=== PATIENT | female | born 1980 | race Caucasian/White ===

== ENCOUNTER 2025-05-26 15:43 | Emergency (ER) | payer OTHER ==
[~2025-05-26] VITALS: Ht 162.6 cm; Wt 70.3 kg
[2025-05-26] MEDS ORDERED: APIX5TAB4 PO (16:44)
[2025-05-26 17:45] LABS: PLATELET COUNT (AUTO) 291 K/uL (179-408); RED BLOOD CELL COUNT(AUTO) 4.83 MIL/uL (3.63-4.92); RED CELL DISTRIBUTION WIDTH 14.0 % (12.3-17.7); WHITE BLOOD COUNT (AUTO) 11.8 K/uL (3.8-11.8)
[2025-05-26 18:01] LABS: ASPARTATE AMINOTRANSFERASE 10 U/L (15-37); CREATININE 0.7 mg/dL (0.6-1.3); SODIUM SERUM 138 mmol/L (136-145); TOTAL PROTEIN, SERUM 7.4 g/dL (6.4-8.2); UREA NITROGEN, BLOOD 12 mg/dL (7-18)
[2025-05-26] MEDS ORDERED: IOHEXOL 350 100 ML INFUS..BTL ONE (18:35)
[2025-05-26 19:19] VITALS: BP 118/75
[2025-05-26 21:04] VITALS: BP 120/72; O2SAT 99
== END 2025-05-26 20:40 | disposition home or self-care (01) ==
LOC: ER 15:47
DX: R06.02 Shortness of breath (principal); M54.2 Cervicalgia; R07.9 Chest pain, unspecified; R10.2 Pelvic and perineal pain; M79.605 Pain in left leg; M79.604 Pain in right leg; Z79.01 Long term (current) use of anticoagulants; Z86.711 Personal history of pulmonary embolism; Z88.0 Allergy status to penicillin; Z91.010 Allergy to peanuts
CPT/HCPCS: 99285; 93970; 71275; 71045; 80076; 80048; 83880; 85025; 85379; 85730; 84484 ×2; 84702; 36415; 93005; Q9967; A4606; A4663